=== PATIENT | male | born 1975 | race Caucasian/White ===

== ENCOUNTER 2019-03-28 12:34 | Day surgery (SDC) | payer BC ==
[~2019-03-28 12:34] MED LIST: Betamethasone Acetate/Betamethasone Sod Phosphate 30 MG/5 ML MDV EPIDUR ONE; Iopamidol 200-M 10 ML vial ITHECAL ONE; Ropivacaine 0.5% 5 MG/ML 30 ML SDV INJECT ONE
--- NOTE | 2019-03-28 21:28 | OR ---
SURGEON: Loida Yoo D.O. DATE OF PROCEDURE: 03/28/2019 PRIMARY SURGEON: Loida Yoo D.O. ASSISTANTS: OR staff present: 1. Jason Arellano RN. 2. Shay Lopez RT. WOUND CLASS: I. PREOPERATIVE DIAGNOSES: 1. Lumbar degenerative disk disease. 2. Lumbar spondylosis. 3. Lumbar spinal stenosis. 4. Lumbar radiculopathy. POSTOPERATIVE DIAGNOSES: 1. Lumbar degenerative disk disease. 2. Lumbar spondylosis. 3. Lumbar spinal stenosis. 4. Lumbar radiculopathy. PROCEDURES PERFORMED: 1. Caudal epidural steroid injection. 2. Fluoroscopic guidance for needle placement. 3. Local with oral Valium for sedation. PREOPERATIVE PAIN: 10/10. POSTOPERATIVE PAIN: 10. FOLLOWUP: In the Pain Clinic in 3 weeks. SCREENING QUESTIONS: The patient answered "no" to all of the following questions: 1. Are you allergic to latex? 2. Do you have a bleeding disorder? 3. Do you have any current local or systemic infections? 4. Are you taking any anti-inflammatories or blood thinners? 5. Do you have any joint replacements, heart valve replacements, or a pacemaker? DESCRIPTION OF PROCEDURE: The patient had the procedure thoroughly explained including all possible risks, benefits and alternatives. Consent was signed in my clinic indicating understanding and willingness to proceed. The patient presented to [facility] and was escorted to the dressing room to disrobe and change into a hospital gown. Preoperative vital signs were taken and stable. The patient reported that Valium was taken prior to the procedure. The patient was brought back to the procedure room and placed in the prone position on the procedure room table. A pillow was placed under the hips in order to flatten the lumbar lordosis. The back was prepped with ChloraPrep and sterilely draped. All personnel in the operating room were dressed in appropriate attire including surgical scrubs, head and shoe covers. This was to ensure sterility while in the treatment room. During the time fluoroscopy was in use, all personnel in the operating room wore lead fisher with thyroid collars. Sterile technique was used throughout the procedure. The patient was awake and conversant throughout the procedure. There was no evidence of infection at the site of needle insertion. Skeletal landmarks were identified under fluoroscopy for the lumbar epidural. Skin was anesthetized with 2% lidocaine with a sterile 27-gauge 1.5 inch needle. Then a 20-gauge Tuohy epidural needle was placed in the epidural space with loss of resistance technique under fluoroscopic guidance. No heme, cerebrospinal fluid, or paresthesias were noted. Isovue-200 contrast dye was injected in 0.2 cubic centimeter increments and seen to outline the epidural space in both AP and lateral views. There was no intravascular flow pattern observed under live fluoroscopy. Then 12 milligrams of Celestone was slowly injected after negative aspiration. The patient tolerated the procedure well. Vital signs were stable during and after the procedure. The staff escorted the patient to the recovery area and the patient was released in stable condition after a brief stay in the recovery room monitored by the nurse. The patient was given both oral and written discharge and follow up instructions with recommendation to follow up given for 2-3 weeks. The patient voiced understanding including understanding of those signs and symptoms that would require emergency care. The patient knows how to contact the office if there are any additional problems or questions in the meantime. DIAMANTE / YUE /[id number]
== END 2019-03-28 15:05 | disposition home or self-care (01) ==
LOC: MW.SDS 12:34
PROVIDERS: ATTEND Anesthesiology
DX: G89.29 Other chronic pain (principal); M54.5 Low back pain; M51.16 Intervertebral disc disorders with radiculopathy, lumbar region; M47.26 Other spondylosis with radiculopathy, lumbar region; M48.061 Spinal stenosis, lumbar region without neurogenic claudication; M40.46 Postural lordosis, lumbar region; I10 Essential (primary) hypertension; J44.9 Chronic obstructive pulmonary disease, unspecified; F17.210 Nicotine dependence, cigarettes, uncomplicated; Z79.1 Long term (current) use of non-steroidal anti-inflammatories (NSAID); Z79.899 Other long term (current) drug therapy
CPT/HCPCS: 62323; J0702

== ENCOUNTER 2019-04-27 19:28 | Emergency (ER) | payer BC ==
--- NOTE | 2019-04-27 19:56 | EDM.PDOC ---
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 Patient Review of systems: As per history of present illness and below otherwise all systems reviewed and negative. Past medical history: As per history of present illness and as reviewed below otherwise noncontributory. Surgical history: As per history of present illness and as reviewed below otherwise noncontributory. Social history: No reported history of drug or alcohol abuse. Family history: As per history of present illness and as reviewed below otherwise noncontributory. Physical exam: HEENT: Atraumatic, normocephalic, pupils reactive, negative for conjunctival pallor or scleral icterus, mucous membranes moist, throat clear, neck supple, nontender, trachea midline. Lungs: Clear to auscultation, breath sounds equal bilaterally, chest nontender. Heart: S1S2, regular, negative for clicks, rubs, or JVD. Abdomen: Soft, nondistended, nontender. Negative for masses or hepatosplenomegaly. Negative for costovertebral tenderness. Pelvis: Stable nontender. Genitourinary: Deferred. Rectal: Deferred. Extremities: Atraumatic, negative for cords or calf pain. Neurovascular unremarkable. Neuro: Awake, alert, oriented. Cranial nerves II through XII unremarkable. Cerebellum unremarkable. Motor and sensory unremarkable throughout. Exam nonfocal. Diagnostics: [] Therapeutics: [Norvasc 5 mg by mouth daily #15 no refill Continue current home medications as directed ] Impression: medical screening exam Hypertension h/o muscle spasm ] Definitive disposition and diagnosis as appropriate pending reevaluation and review of above. - Related Data Allergies Allergy/AdvReac Type Severity Reaction Status Date / Time No Known Allergies Allergy Verified 06/19/17 10:11 Home Meds: Home Meds Gabapentin [Neurontin] 600 mg PO TID 04/27/19 [History] Nortriptyline 10 mg PO BID 04/27/19 [History] tiZANidine [Zanaflex] 4 mg PO BID 04/27/19 [History] Past Medical History Cardiovascular History: Reports: Hypertension Musculoskeletal History: Reports: Back Pain, Chronic - Infectious Disease History Infectious Disease History: Reports: Chicken Pox Social & Family History - Family History Family Medical History: Noncontributory - Tobacco Use Smoking Status *Q: Current Every Day Smoker Years of Tobacco use: 20 Packs/Tins Daily: 1.5 - Caffeine Use Caffeine Use: Reports: None - Recreational Drug Use Recreational Drug Use: No ED ROS GENERAL - Review of Systems Review Of Systems: See Below ED EXAM, GENERAL - Physical Exam Exam: See Below Course - Vital Signs Last Recorded V/S: Last Vital Signs Temp 96.9 F 04/27/19 19:43 Pulse 81 04/27/19 19:43 Resp 16 04/27/19 19:43 BP 126/93 H 04/27/19 19:48 Pulse Ox 93 L 04/27/19 19:48 Departure - Departure Time of Disposition: 19:54 Disposition: Home, Self-Care 01 Condition: Good Clinical Impression: HTN (hypertension), History of muscle spasm - Discharge Information Additional Instructions: The following information is given to patients seen in the emergency department who are being discharged to home. This information is to outline your options for follow-up care. We provide all patients seen in our emergency department with a follow-up referral. The need for follow-up, as well as the timing and circumstances, are variable depending upon the specifics of your emergency department visit. If you don't have a primary care physician on staff, we will provide you with a referral. We always advise you to contact your personal physician following an emergency department visit to inform them of the circumstance of the visit and for follow-up with them and/or the need for any referrals to a consulting specialist. The emergency department will also refer you to a specialist when appropriate. This referral assures that you have the opportunity for follow-up care with a specialist. All of these measure are taken in an effort to provide you with optimal care, which includes your follow-up. Under all circumstances we always encourage you to contact your private physician who remains a resource for coordinating your care. When calling for follow-up care, please make the office aware that this follow-up is from your recent emergency room visit. If for any reason you are refused follow-up, please contact the [facility] emergency department at and asked to speak to the emergency department charge nurse.
[2019-04-27 20:31] VITALS: BP 126/93; PULSE 81
== END 2019-04-27 20:06 ==
LOC: MW.ED 19:28
DX: I10 Essential (primary) hypertension (principal); M62.838 Other muscle spasm; F17.200 Nicotine dependence, unspecified, uncomplicated
CPT/HCPCS: 99282; 99283

== ENCOUNTER 2020-12-14 11:10 | Emergency (ER) | payer SELFPAY ==
--- NOTE | 2020-12-14 15:46 | CR ---
INDICATION: Bilateral lower extremity edema. TECHNIQUE: Chest 1 view. COMPARISON: Chest radiograph 05/16/2017. FINDINGS: No focal consolidation, pleural effusion, or pneumothorax. Normal heart size and pulmonary vascularity. The bones are unremarkable. IMPRESSION: No acute cardiopulmonary findings. Dictated by Bonnie Aponte MD @ 12/14/2020 3:43:[address] Bonnie Aponte @ Dec 14 2020 3:43PM
--- NOTE | 2020-12-14 15:51 | EDM.PDOC ---
ED HPI GENERAL MEDICAL PROBLEM - General Chief Complaint: Lower Extremity Injury/Pain Stated Complaint: SWOLLEN LEGS Time Seen by Provider: 12/14/20 14:03 Source of Information: Reports: Patient History Limitations: Reports: No Limitations - History of Present Illness INITIAL COMMENTS - FREE TEXT/NARRATIVE: HISTORY AND PHYSICAL: History of present illness: Patient is a 45-year-old male, with a h/o chronic alcohol use, who presents to the ED with bilateral lower leg swelling x 3 weeks. Patient states that both of his legs have been swelling on and off for the past couple of months but was able to elevate his legs and the swelling will go away. Patient states that over the last 3 weeks the swelling has become more persistent and has not subsided with elevating his legs. Patient states that during the last 3 weeks his legs have been hurting and he describes the pain as a sharp stabbing pain is a 10 out of 10. Patient has taken Advil which he normally takes for long standing back pain. Patient states that it is difficult to walk when his feet are swollen. Patient also reports some shortness of breath with ambulation. Patient does smoke 1/2 pack of cigarettes daily and has so for many days. His shortness of breath has not stopped him from being able to smoke. Patient also drinks 5-6 beers every night and states that he does "get the shakes "if he does not drink. Patient denies fever, chills, chest pain, or cough. Denies headache, neck stiff ness, change in vision, syncope, or near syncope. Denies nausea, vomiting, abdominal pain, diarrhea, constipation, or dysuria. Has not noted any blood in urine or stool. Patient has been eating and drinking appropriately. Review of systems: As per history of present illness and below otherwise all systems reviewed and negative. Past medical history: As per history of present illness and as reviewed below otherwise noncontributory. Surgical history: As per history of present illness and as reviewed below otherwise noncontributory. Social history: See social history for further information Family history: As per history of present illness and as reviewed below otherwise noncontributory. Physical exam: General: Patient is alert, oriented, and in no acute distress. Patient sitting comfortably on exam table. Blood pressure 99/52 and other vitals stable and reviewed by me. Patient chronically ill appearing; appearing older than stated age. HEENT: Atraumatic, normocephalic, pupils equal and reactive bilaterally, negative for conjunctival pallor or scleral icterus, mucous membranes moist Lungs: Clear to auscultation, breath sounds equal bilaterally, chest nontender. Heart: S1S2, regular rate and rhythm without overt murmur Abdomen: Soft, nondistended, nontender. Negative for masses or h epatosplenomegaly. Negative for costovertebral tenderness. Pelvis: Stable nontender. Genitourinary: Deferred. Rectal: (Rectal exam performed by SHELDON Howard. No obvious hemorrhoids, masses, lesions, fissures. Rectal tone intact. Hemoccult positive. Skin: Intact, warm, dry. No lesions or rashes noted. Extremities: Atraumatic, negative for cords or calf pain. Neurovascular unremarkable. Bilateral 3+ pitting edema up to the knees. No redness or erythema noted with pain of bilateral extremities. Patient does have full range of motion of all extremities but does have pain below bilateral knees. Neuro: Awake, alert, oriented. Cranial nerves II through XII unremarkable. Cerebellum unremarkable. Motor and sensory unremarkable throughout. Exam nonfocal. Notes: Patient is a 45-year-old male, with a h/o chronic alcohol use, who presents to the ED secondary to bilateral lower leg swelling x 3-weeks with history of persistent painful leg swelling. Patient's blood pressure was softer with systolics in the 90s and diastolics in the 50s with a MAP of 75. Bilateral 3+ lower leg edema up to the knees. Will perform cardiac evaluation as well as baseline lab work. CBC is remarkable for an elevated white blood cell count at 18.74, decreased red blood cells at 1.85, with a hemoglobin of 6, hematocrit of 19. MCV is mildly elevated at 102.7 and MCH is mildly elevated at 32.4 indicative of macrocytic anemia requiring blood transfusion. Hemoccult positive with concern for acute GI bleed. CMP remarkable for hyponatremia at 127 and hypokalemia at 2.8. Hypochloremia at 87. Glucose is mildly elevated at 111. Corrected calcium is mildly low at 7.6 mg/dL. Bilirubin is elevated at 1.9 with an elevation of AST at 171 and alk phos at 623. Troponin is negative. BNP is normal at 34. Albumin is low at 2.3. Chest x-ray shows no acute cardiopulmonary findings. Due to presumed acute GI bleed with anemia requiring transfusion, will obtain type and screen/match and transfuse 2 units of blood. All risks versus benefits of blood transfusion, included but not limited to acute transfusion injury, risk for blood-born pathogen, lung injury thoroughly discussed with patient and expresses understanding and agreeable to blood transfusion. Also, patient does drink alcohol daily and states he does drink 5-6 drinks but does "get the shakes "if he stops. Patient does have an proportion to ALT and elevation of AST at 171 and alk phos at 623. Will obtain PT/INR. Upon reevaluation of patient, he remains comfortable throughout stay in ED. However, with continually reeval of patient, have noticed that his blood pressure has been slowly decreasing now with a blood pressure of 80s over 40s with a MAP right at 65. Second IV iniated. Initial fluid bolus still ongoing. Lab states blood will be ready in 5 minutes. I did call and speak to Dr. Stewart, [facility], and thoroughly discussed patient's case. Will transfer to [facility] via flight. Patient discharged to flight in stable condition. Diagnostics: EKG, CXR, CMP, BNP, troponin, INR, cross type match, stool guaiac, COVID, lactate, blood cultures x2 Therapeutics: 2 units PRBC, Banana bag, Potassium PO, Zosyn, Vancomycin, Impression: Acute GI bleed with anemia Hypotension Sepsis, unknown source Bilateral lower extremity edema Hypokalemia Hyponatremia Plan: Transfer to Dr. Stewart at [facility] via flight Critical care time is exclusive of billable procedures and the time to perform these procedures. Critical care time was used to prevent vital system organ failure and deterioration. Critical care time includes bedside management and high-complexity decision making requiring my highest level of mental preparedness and attention. This includes reviewing the patient's chart and prior medical records, ordering and reviewing interpreting laboratory studies and imaging results, interpretation of vital signs and EKG, pulse oximetry, and discussion with the admitting team along with EMS and nursing staff. Patient presented with multiple critical lab values that required immediate intervention, and immediate transfer to higher level facility for additional evaluation and treatment CC Time: 30 minutes Definitive disposition and diagnosis as appropriate pending reevaluation and review of above. bilateral legs Pain Score (Numeric/FACES): 10 - Related Data Allergies Allergy/AdvReac Type Severity Reaction Status Date / Time No Known Allergies Allergy Verified 12/14/20 12:24 Home Meds: Home Meds Acetaminophen [Tylenol] 3 tab PO TID PRN 12/14/20 [History] Ibuprofen [Advil] 3 tab PO TID PRN 12/14/20 [History] Past Medical History Cardiovascular History: Reports: Hypertension Musculoskeletal History: Reports: Back Pain, Chronic, Other (See Below) Other Musculoskeletal History: Degenerative Disk Disease - Infectious Disease History Infectious Disease History: Reports: Chicken Pox Social & Family History - Family History Family Medical History: No Pertinent Family History - Tobacco Use Tobacco Use Status *Q: Current Every Day Tobacco User Years of Tobacco use: 22 Packs/Tins Daily: 0.5 - Caffeine Use Caffeine Use: Reports: None - Alcohol Use Days Per Week of Alcohol Use: 7 Number of Drinks Per Day: 4 Total Drinks Per Week: 28 - Recreational Drug Use Recreational Drug Use: No Review of Systems - Review of Systems Review Of Systems: Comprehensive ROS is negative, except as noted in HPI. ED EXAM, GENERAL - Physical Exam Exam: See Below (see dictation) Course - Vital Signs Last Recorded V/S: Last Vital Signs Temp 97.5 F 12/14/20 19:29 Pulse 94 12/14/20 19:29 Resp 18 12/14/20 19:29 BP 102/62 12/14/20 19:29 Pulse Ox 96 12/14/20 19:29 - Orders/Labs/Meds Labs: Laboratory Tests 12/14/20 12/14/20 12/14/20 Range/Units 15:27 15:27 15:27 WBC 18.74 H (4.0-11.0) K/uL RBC 1.85 L (4.50-5.90) M/uL Hgb 6.0 L (13.0-17.0) g/dL Hct 19.0 L (38.0-50.0) % MCV 102.7 H (80.0-98.0) fL MCH 32.4 H (27.0-32.0) pg MCHC 31.6 (31.0-37.0) g/dL RDW Std Deviation 127.3 H (28.0-62.0) fl RDW Coeff of Anil 34 H (11.0-15.0) % Plt Count 185 (150-400) K/uL MPV 9.50 (7.40-12.00) fL Neut % (Auto) 88.8 H (48.0-80.0) % Lymph % (Auto) 4.3 L (16.0-40.0) % [place] % (Auto) 6.7 (0.0-15.0) % Eos % (Auto) 0.1 (0.0-7.0) % Baso % (Auto) 0.1 (0.0-1.5) % Neut # (Auto) 16.7 H (1.4-5.7) K/uL Lymph # (Auto) 0.8 (0.6-2.4) K/uL [place] # (Auto) 1.3 H (0.0-0.8) K/uL Eos # (Auto) 0.0 (0.0-0.7) K/uL Baso # (Auto) 0.0 (0.0-0.1) K/uL Nucleated RBC % 1.8 /100WBC Nucleated RBCs # 0 K/uL INR Sodium 127 L (136-148) mmol/L Potassium 2.8 L (3.5-5.1) mmol/L Chloride 87 L (98-107) mmol/L Carbon Dioxide 26.5 (21.0-32.0) mmol/L BUN 10 (7.0-18.0) mg/dL Creatinine 0.8 (0.8-1.3) mg/dL Est Cr Clr Drug Dosing 111.04 mL/min Estimated GFR (MDRD) > 60.0 ml/min Glucose 111 H (74-106) mg/dL Lactic Acid (0.4-2.0) mmol/L Calcium 6.7 L (8.5-10.1) mg/dL Total Bilirubin 1.9 H (0.2-1.0) mg/dL AST 171 H (15-37) IU/L ALT 40 (14-63) IU/L Alkaline Phosphatase 623 H (46-116) U/L Troponin I < 0.050 (0.000-0.056) ng/mL B-Natriuretic Peptide 34 (<100) PG/ML Total Protein 6.3 L (6.4-8.2) g/dL Albumin 2.3 L (3.4-5.0) g/dL Globulin 4.0 (2.6-4.0) g/dL Albumin/Globulin Ratio 0.6 L (0.9-1.6) Urine Color Urine Appearance Urine pH (5.0-8.0) Ur Specific [place] (1.001-1.035) Urine Protein (NEGATIVE) mg/dL Urine Glucose (UA) (NEGATIVE) mg/dL Urine Ketones (NEGATIVE) mg/dL Urine Occult Blood (NEGATIVE) Urine Nitrite (NEGATIVE) Urine Bilirubin (NEGATIVE) Urine Urobilinogen (<2.0) EU/dL Ur Leukocyte Esterase (NEGATIVE) Influenza Type A RNA (NEGATIVE) Influenza Type B RNA (NEGATIVE) SARS-CoV-2 RNA (JORDY) (NEGATIVE) Blood Type Antibody Screen Crossmatch 12/14/20 12/14/20 12/14/20 Range/Units 17:10 17:10 17:10 WBC (4.0-11.0) K/uL RBC (4.50-5.90) M/uL Hgb (13.0-17.0) g/dL Hct (38.0-50.0) % MCV (80.0-98.0) fL MCH (27.0-32.0) pg MCHC (31.0-37.0) g/dL RDW Std Deviation (28.0-62.0) fl RDW Coeff of Anil (11.0-15.0) % Plt Count (150-400) K/uL MPV (7.40-12.00) fL Neut % (Auto) (48.0-80.0) % Lymph % (Auto) (16.0-40.0) % [place] % (Auto) (0.0-15.0) % Eos % (Auto) (0.0-7.0) % Baso % (Auto) (0.0-1.5) % Neut # (Auto) (1.4-5.7) K/uL Lymph # (Auto) (0.6-2.4) K/uL [place] # (Auto) (0.0-0.8) K/uL Eos # (Auto) (0.0-0.7) K/uL Baso # (Auto) (0.0-0.1) K/uL Nucleated RBC % /100WBC Nucleated RBCs # K/uL INR 1.17 Sodium (136-148) mmol/L Potassium (3.5-5.1) mmol/L Chloride (98-107) mmol/L Carbon Dioxide (21.0-32.0) mmol/L BUN (7.0-18.0) mg/dL Creatinine (0.8-1.3) mg/dL Est Cr Clr Drug Dosing mL/min Estimated GFR (MDRD) ml/min Glucose (74-106) mg/dL Lactic Acid 5.2 H* (0.4-2.0) mmol/L Calcium (8.5-10.1) mg/dL Total Bilirubin (0.2-1.0) mg/dL AST (15-37) IU/L ALT (14-63) IU/L Alkaline Phosphatase (46-116) U/L Troponin I (0.000-0.056) ng/mL B-Natriuretic Peptide (<100) PG/ML Total Protein (6.4-8.2) g/dL Albumin (3.4-5.0) g/dL Globulin (2.6-4.0) g/dL Albumin/Globulin Ratio (0.9-1.6) Urine Color Urine Appearance Urine pH (5.0-8.0) Ur Specific [place] (1.001-1.035) Urine Protein (NEGATIVE) mg/dL Urine Glucose (UA) (NEGATIVE) mg/dL Urine Ketones (NEGATIVE) mg/dL Urine Occult Blood (NEGATIVE) Urine Nitrite (NEGATIVE) Urine Bilirubin (NEGATIVE) Urine Urobilinogen (<2.0) EU/dL Ur Leukocyte Esterase (NEGATIVE) Influenza Type A RNA (NEGATIVE) Influenza Type B RNA (NEGATIVE) SARS-CoV-2 RNA (JORDY) (NEGATIVE) Blood Type A POSITIVE Antibody Screen NEGATIVE Crossmatch See Detail 12/14/20 12/14/20 Range/Units 17:20 17:45 WBC (4.0-11.0) K/uL RBC (4.50-5.90) M/uL Hgb (13.0-17.0) g/dL Hct (38.0-50.0) % MCV (80.0-98.0) fL MCH (27.0-32.0) pg MCHC (31.0-37.0) g/dL RDW Std Deviation (28.0-62.0) fl RDW Coeff of Anil (11.0-15.0) % Plt Count (150-400) K/uL MPV (7.40-12.00) fL Neut % (Auto) (48.0-80.0) % Lymph % (Auto) (16.0-40.0) % [place] % (Auto) (0.0-15.0) % Eos % (Auto) (0.0-7.0) % Baso % (Auto) (0.0-1.5) % Neut # (Auto) (1.4-5.7) K/uL Lymph # (Auto) (0.6-2.4) K/uL [place] # (Auto) (0.0-0.8) K/uL Eos # (Auto) (0.0-0.7) K/uL Baso # (Auto) (0.0-0.1) K/uL Nucleated RBC % /100WBC Nucleated RBCs # K/uL INR Sodium (136-148) mmol/L Potassium (3.5-5.1) mmol/L Chloride (98-107) mmol/L Carbon Dioxide (21.0-32.0) mmol/L BUN (7.0-18.0) mg/dL Creatinine (0.8-1.3) mg/dL Est Cr Clr Drug Dosing mL/min Estimated GFR (MDRD) ml/min Glucose (74-106) mg/dL Lactic Acid (0.4-2.0) mmol/L Calcium (8.5-10.1) mg/dL Total Bilirubin (0.2-1.0) mg/dL AST (15-37) IU/L ALT (14-63) IU/L Alkaline Phosphatase (46-116) U/L Troponin I (0.000-0.056) ng/mL B-Natriuretic Peptide (<100) PG/ML Total Protein (6.4-8.2) g/dL Albumin (3.4-5.0) g/dL Globulin (2.6-4.0) g/dL Albumin/Globulin Ratio (0.9-1.6) Urine Color YELLOW Urine Appearance CLEAR Urine pH 6.5 (5.0-8.0) Ur Specific [place] 1.015 (1.001-1.035) Urine Protein NEGATIVE (NEGATIVE) mg/dL Urine Glucose (UA) NEGATIVE (NEGATIVE) mg/dL Urine Ketones NEGATIVE (NEGATIVE) mg/dL Urine Occult Blood NEGATIVE (NEGATIVE) Urine Nitrite NEGATIVE (NEGATIVE) Urine Bilirubin NEGATIVE (NEGATIVE) Urine Urobilinogen 4.0 H (<2.0) EU/dL Ur Leukocyte Esterase NEGATIVE (NEGATIVE) Influenza Type A RNA NEGATIVE (NEGATIVE) Influenza Type B RNA NEGATIVE (NEGATIVE) SARS-CoV-2 RNA (JORDY) NEGATIVE (NEGATIVE) Blood Type Antibody Screen Crossmatch Meds: Medications Discontinued Medications Generic Name Dose Route Start Last Admin Trade Name Freq PRN Reason Stop Dose Admin Sodium Chloride 1,000 mls @ 999 mls/hr 12/14/20 16:51 12/14/20 18:12 Normal Saline IV 12/14/20 17:51 Not Given STAT ONE Multivitamins/Minerals 10 ml/ 1,011.2 mls @ 999 mls/hr 12/14/20 17:30 12/14/20 18:12 Thiamine HCl 100 mg/ Folic IV 12/14/20 18:30 Not Given Acid 1 mg/ Sodium Chloride ONETIME ONE Multivitamins/Minerals 10 ml/ 1,011.2 mls @ 999 mls/hr 12/14/20 17:45 12/14/20 18:33 Thiamine HCl 100 mg/ Folic IV 12/14/20 18:45 999 mls/hr Acid 1 mg/ Sodium Chloride ONETIME ONE Administration Pantoprazole Sodium 80 mg/ 20 mls @ 420 mls/hr 12/14/20 18:14 12/14/20 18:33 Sodium Chloride IVPUSH 12/14/20 18:16 420 mls/hr ONETIME ONE Administration Piperacillin Sod/Tazobactam 100 mls @ 100 mls/hr 12/14/20 18:40 12/14/20 19:23 Sod 4.5 gm/ Sodium Chloride IV 12/14/20 19:39 100 mls/hr ONETIME ONE Administration Vancomycin HCl 1 gm/ Sodium 250 mls @ 166 mls/hr 12/14/20 18:43 12/14/20 19:23 Chloride IV 12/14/20 20:13 166 mls/hr ONETIME ONE Administration Sodium Chloride 1,000 mls @ 999 mls/hr 12/14/20 18:59 12/14/20 19:24 Normal Saline IV 12/14/20 19:59 999 mls/hr STAT ONE Administration Potassium Chloride 40 meq 12/14/20 17:27 12/14/20 18:33 Potassium Chloride 20 Meq Tab.Er PO 12/14/20 17:28 40 meq ONETIME ONE Administration Departure - Departure Time of Disposition: 18:59 Disposition: DC/Tfer to [facility] 02 Clinical Impression: Acute GI bleeding, Hypokalemia, Hyponatremia, Hypoalbuminemia, Transaminitis, Chronic alcohol use, Lower leg edema Sepsis Qualifiers: Sepsis type: sepsis due to unspecified organism Sepsis acute organ dysfunction status: unspecified Qualified Code(s): A41.9 - Sepsis, unspecified organism - Discharge Information Referrals: PCP,None [Primary Care Provider] - Forms: ED Department Discharge Sepsis Event Note (ED) - Evaluation Sepsis Screening Result: No Definite Risk
[2020-12-14 16:18] LABS: BLOOD UREA NITROGEN,BUN 10 mg/dL (7.0-18.0); CARBON DIOXIDE,CO2 26.5 mmol/L (21.0-32.0); CHLORIDE,CL 87 mmol/L (98-107); GLUCOSE RANDOM 111 mg/dL (74-106); POTASSIUM,K 2.8 mmol/L (3.5-5.1); SODIUM,NA 127 mmol/L (136-148)
[2020-12-14] MEDS ORDERED: Sodium Chloride 0.9% 1,000 ML IV ONE ×2 (16:51→18:59)
[2020-12-14] MEDS ORDERED: Potassium Chloride 20 MEQ Tab.ER PO ONE (17:27)
[2020-12-14] MEDS ORDERED: MVI, Adult with Vitamin K 10 ML, Thiamine 100 MG, Folic Acid 1 MG in Sodium Chloride 0.... IV ONE ×8 (17:30→17:45)
[2020-12-14] MEDS ORDERED: Pantoprazole 80 MG in Sodium Chloride 0.9% 20 ML IVPUSH ONE (18:14)
[2020-12-14 18:30] LABS: CORONAVIRUS COVID-19 NAA NEGATIVE (NEGATIVE); INFLUENZA A NAA NEGATIVE (NEGATIVE); INFLUENZA B NAA NEGATIVE (NEGATIVE)
[2020-12-14] MEDS ORDERED: Piperacillin/Tazobactam 4.5 GM in Sodium Chloride 0.9% 100 ML IV ONE (18:40)
[2020-12-14 19:38] VITALS: BP 102/62; PULSE 94
--- NOTE | 2020-12-15 07:29 | PCM.EKG ---
#1 Interpretation EKG Date: 12/14/20 Time: 15:26 Rhythm: NSR Rate (Beats/Min): 99 [place]: Normal P-Wave: Present QRS: Normal ST-T: Normal QT: Normal Comparison: NA - No Prior EKG EKG Interpretation Comments: Sinus Rhythm with diffuse T wave inversion
== END 2020-12-14 19:39 ==
LOC: MW.ED 11:10
DX: A41.9 Sepsis, unspecified organism (principal); K92.2 Gastrointestinal hemorrhage, unspecified; D53.9 Nutritional anemia, unspecified; E87.6 Hypokalemia; E87.1 Hypo-osmolality and hyponatremia; E88.09 Other disorders of plasma-protein metabolism, not elsewhere classified; R74.01 Elevation of levels of liver transaminase levels; R60.0 Localized edema; I95.9 Hypotension, unspecified; I10 Essential (primary) hypertension; Z79.899 Other long term (current) drug therapy; Z72.0 Tobacco use; Z20.822 Contact with and (suspected) exposure to COVID-19; Z72.89 Other problems related to lifestyle
CPT/HCPCS: 0240U; 36415; 36430; 71045; 80053; 81003; 83605; 83880; 84484; 85025; 85610; 86850; 86900; 86901; 86920; 86921; 86922; 87040; 93005; 96365; 96368; 96375; 99285; A9270; C9113; J2543; J3370; J3411; J7030; J7050; P9016; 99291